=== PATIENT | female | born 1950 | race Caucasian/White ===

== ENCOUNTER → 2016-12-04 | Outpatient (CLI) | payer MEDICARE, OTHER ==
[~2016-12-04] MED LIST: DILAUDID 2MG(HYD2 MG PO; FLEXERIL10 MG PO; LYRICA 75MG CAP75 MG PO; MAXZIDE-751 TAB PO; NUCYNTA50 MG PO; PHENERGAN25 M1 PO; TYLENOL325 MG PO; VASOTEC2.5 MG PO; XARELTO10 MG PO; [UNRECOGNIZED DRUG - OTHER] PO
== END | disposition disaster alternative care site (69) ==
LOC: GBCOE 09:00
DX: M81.0 Age-related osteoporosis without current pathological fracture (principal)